=== PATIENT | male | born 1955 | race Caucasian/White ===

== ENCOUNTER → 2017-07-08 | Outpatient (CLI) | payer BC | LOC: FIMAGING 14:10 | PROVIDERS: ATTEND Orthopaedic Surgery | DX: Z01.818 Encounter for other preprocedural examination (principal); M17.11 Unilateral primary osteoarthritis, right knee ==

== ENCOUNTER 2017-07-23 05:56 | Observation (INO) | payer BC ==
[2017-07-23] MEDS ORDERED: ROPIVACAINE 0.2% 80 MG, EPINEPHrine 0.2 MG, KETOROLAC TROMETHAMINE 30 MG in BAG 0 ML IU ONE (06:00)
[2017-07-23] MEDS ORDERED: TRANEXAMIC ACID 3,000 MG in NS 50 ML IRR ONE (06:00)
[2017-07-23] MEDS ORDERED: ceFAZolin 2 GM/DEXTROSE 100 ML IV ONE (06:05)
[2017-07-23] MEDS ORDERED: DEXAMETHASONE 4 MG/ML VIAL IVP ONE (06:05)
[2017-07-23] MEDS ORDERED: FAMOTIDINE 20 MG TAB PO ONE (06:05)
[2017-07-23] MEDS ORDERED: ACETAMINOPHEN 325 MG TAB PO ONE (06:05)
[2017-07-23] MEDS ORDERED: LR 1,000 ML IV ONE (06:07)
[2017-07-23] MEDS ORDERED: LIDOCAINE 1% 2 ML INJ ID PRN (06:07)
[2017-07-23] MEDS ORDERED: MIDAZOLAM 2 MG/2 ML VIAL IVP ONE (07:15)
--- NOTE | 2017-07-23 07:16 | PDANEPAE ---
ANE History of Present Illness right knee osteoarthritis ANE Past Medical History - Cardiovascular History Hx Hypertension: No Hx Arrhythmias: No Hx Chest Pain: No Hx Coronary Artery / Peripheral Vascular Disease: No Hx CHF / Valvular Disease: No Hx Palpitations: No - Pulmonary History Hx COPD: No Hx Asthma/Reactive Airway Disease: No Hx Recent Upper Respiratory Infection: No Hx Oxygen in Use at Home: No Hx Sleep Apnea: No Sleep Apnea Screening Result - Last Documented: Negative - Neurologic History Hx Cerebrovascular Accident: No Hx Seizures: No Hx Dementia: No - Endocrine History Hx Diabetes: No - Renal History Hx Renal Disorders: No - Liver History Hx Hepatic Disorders: No - Neurological & Psychiatric Hx Hx Neurological and Psychiatric Disorders: No - Cancer History Hx Cancer: No Cancer History Comment: PRE-CANCEROUS CELLS REMOVED FROM NOSE A COUPLE YEARS AGO - Congenital Disorder History Hx Congenital Disorders: No - GI History Hx Gastrointestinal Disorders: No - Other Health History Other Health History: NONE - Chronic Pain History Chronic Pain: Yes (RIGHT KNEE) - Surgical History Prior Surgeries: LOWER BACK SURGERIES X4. KNEE SURGERIES X3. VASECTOMY. LASIK. WISDOM TEETH ANE Review of Systems Review of Systems: - Exercise capacity METS (RN): 4 METS ANE Patient History - Allergies Allergies/Adverse Reactions: No Known Allergies Allergy (Verified 06/25/17 10:49) - Home Medications Home Medications: Aspirin [Aspirin 81mg (*)] 81 mg PO DAILY 06/18/17 [Last Taken 07/14/17] Atorvastatin Calcium [Lipitor 10 mg (*)] 10 mg PO DAILY 06/18/17 [Last Taken 01/03 08:00] Cyanocobalamin [Vitamin B12 (*)] 1,000 mcg PO DAILY 06/18/17 [Last Taken ] Glucosamine Sulfate [Glucosamine Sulfate 500 MG (*)] 1,500 mg PO DAILY 06/18/17 [Last Taken 07/14/17] Multivitamins [Multivitamin (*)] 1 each PO DAILY 06/18/17 [Last Taken 07/14/17] - NPO status NPO Since - Liquids (Date): 07/22/17 NPO Since - Liquids (Time): 21:45 NPO Since - Solids (Date): 07/22/17 NPO Since - Solids (Time): 20:00 - Smoking Hx Smoking Status: Former smoker - Family Anes Hx Family Hx Anesthesia Complications: NONE ANE Labs/Vital Signs - Vital Signs Blood Pressure: 116/73 Heart Rate: 52 Respiratory Rate: 16 O2 Sat (%): 94 Height: 182.88 cm Weight: 79.379 kg ANE Physical Exam - Airway Neck exam: FROM Mallampati Score: Class 1 Mouth exam: normal dental/mouth exam - Pulmonary Pulmonary: no respiratory distress - Cardiovascular Cardiovascular: regular rate and rhythym - ASA Status ASA Status: II ANE Anesthesia Plan Anesthesia Plan: MAC, spinal Regional Anesthesia: adductor canal FNB
[2017-07-23] MEDS ORDERED: PROPOFOL/EMULSION 500 MG/50 ML BOTTLE IV ONE (07:18)
[2017-07-23] MEDS ORDERED: fentaNYL 100 MCG/2 ML INJ ONE (07:18)
[2017-07-23] MEDS ORDERED: VANCOMYCIN 1 GM VIAL ONE (07:19)
[2017-07-23] MEDS ORDERED: TRANEXAMIC ACID 3,000 MG/50 ML BAG IRR ONE (07:20)
--- NOTE | 2017-07-23 07:20 | PDHPUP ---
History & Physical Update H&P update statement: This history and physical update is based on an assessment of the patient which was completed after admission or registration (within 24 hours), but prior to the surgery/procedure. H&P update: H&P reviewed & patient examined, no change in patient's condition since H&P completed
[2017-07-23] MEDS ORDERED: oxyCODONE IR 5 MG TAB PO PRN (07:44)
[2017-07-23] MEDS ORDERED: ONDANSETRON DISINTEGRATING 4 MG TAB PO PRN (07:44)
[2017-07-23] MEDS ORDERED: METOCLOPRAMIDE 10 MG/2 ML VIAL IVP PRN (07:44)
[2017-07-23] MEDS ORDERED: PROMETHAZINE HCL 25 MG/ML INJ IVP PRN ×2 (07:44→08:07)
[2017-07-23] MEDS ORDERED: PROMETHAZINE HCL 25 MG SUPPR PR PRN (07:44)
[2017-07-23] MEDS ORDERED: POLYETHYLENE GLYCOL 3350 17 GM PKT PO PRN (07:44)
[2017-07-23] MEDS ORDERED: CYCLOBENZAPRINE 10 MG TAB PO PRN (07:44)
[2017-07-23] MEDS ORDERED: LACTULOSE 20 GM/30 ML UDCUP PO PRN (07:44)
[2017-07-23] MEDS ORDERED: MAGNESIUM HYDROXIDE 30 ML UDCUP PO PRN (07:44)
[2017-07-23] MEDS ORDERED: DIPHENOXYLATE/ATROPINE LOMOTIL 1 TAB PO PRN (07:44)
[2017-07-23] MEDS ORDERED: BISACODYL 10 MG SUPP PR PRN (07:44)
[2017-07-23] MEDS ORDERED: TEMAZEPAM 15 MG CAP PO PRN (07:44)
[2017-07-23] MEDS ORDERED: diphenhydrAMINE 25 MG CAP PO PRN (07:44)
[2017-07-23] MEDS ORDERED: ONDANSETRON 4 MG/2 ML VIAL IVP PRN ×2 (07:44→08:07)
[2017-07-23] MEDS ORDERED: ONDANSETRON 4 MG/2 ML VIAL ONE (07:58)
[2017-07-23] MEDS ORDERED: DEXAMETHASONE 4 MG/ML VIAL ONE (07:58)
[2017-07-23] MEDS ORDERED: ROPIVACAINE HCL 150 MG/30 ML INJ ONE (07:59)
[2017-07-23] MEDS ORDERED: NALOXONE HCL 0.4 MG/ML INJ IVP PRN (08:07)
[2017-07-23] MEDS ORDERED: fentaNYL 100 MCG/2 ML INJ IVP PRN (08:07)
[2017-07-23] MEDS ORDERED: HYDROmorphONE/DILAUDID 1 MG/ML INJ IVP PRN (08:07)
[2017-07-23] MEDS ORDERED: OXYCODONE/APAP 5/325 TAB PO PRN (08:07)
--- NOTE | 2017-07-23 08:48 | POSTOPPROG ---
Post Op Note Date of Operation: 07/23/17 Surgeon: Brown You Broadcast Transmitter Operator: barbara you Anesthesiologist: dr. ortez Anesthesia: Spinal, Other (Specify) (adductor canal block) Pre-op Diagnosis: right medial kene OA Post-op Diagnosis: same Indication: right knee pain due to OA that failed conservative measures Procedure: R med partial knee arthroplasty robot assisted Findings: severe medial knee OA Inf/Abcess present in the surg proc area at time of surgery?: No EBL: [id number]
[2017-07-23] MEDS ORDERED: SENNOSIDES/DOCUSATE SODIUM TAB PO SCH (09:00)
--- NOTE | 2017-07-23 09:01 | POSTANESTH ---
Post Anesthetic Evaluation Cardiovascular Status: Normal, Stable Respiratory Status: Normal, Stable Level of Consciousness/Mental Status: Can Participate in Eval Pain Control: Adequate, Prn Tx Ordered Nausea/Vomiting Control: Adequate, Prn Tx Ordered Complications Possibly Related to Anesthesia: None Noted
[2017-07-23] MEDS: LR 1,000 ML IV SCH ×3 (10:00→11:51)
[2017-07-23 11:38] VITALS: RESP 16
[2017-07-23] MEDS: ACETAMINOPHEN 325 MG TAB PO SCH ×2 (11:53→17:34)
[2017-07-23] MEDS ORDERED: ceFAZolin 2 GM/DEXTROSE 100 ML IV SCH (14:00)
[2017-07-23 15:25] VITALS: BP 107/64; PULSE 58; TEMP 97.9; O2SAT 96
[2017-07-23] MEDS ORDERED: FAMOTIDINE 20 MG TAB PO SCH (21:00)
[2017-07-23] MEDS ORDERED: ASPIRIN 325 MG TAB PO SCH (21:00)
[2017-07-24] MEDS ORDERED: ATORVASTATIN CALCIUM 10 MG TAB PO SCH (09:00)
--- NOTE | 2017-07-24 11:27 | ASDISCHSUM ---
Discharge Information Plan Status:Home with No Needs Medically Cleared to Leave: Discharge Date:07/23/2017 08:20 PM CM D/C Disposition: ADT D/C Disposition:Home, Routine, Self-Care Projected Discharge Date:07/23/2017 08:20 PM Transportation at D/C: Discharge Delay Reason: Follow-Up Date:07/23/2017 08:20 PM Discharge Slot: Final Diagnosis: Placement Information Patient Contact Information Contact Name:GORGE Relationship: Address: Work Phone: City: [facility] Phone: State/[place] Code: Email: Financial Information Financial Class:HMO and PPO Plans Primary Plan Desc:[employer]AN Primary Plan Number:[id number] Secondary Plan Desc: Secondary Plan Number: Assessment Information Intervention Information
--- NOTE | 2017-07-24 20:17 | GOP ---
[f rep st] OPERATIVE REPORT DATE OF OPERATION: 07/23/2017 SURGEON: Asif Nash MD SOFTWARE SECURITY ARCHITECT: Leah Nash PA-C. ANESTHESIA: Spinal. PREOPERATIVE DIAGNOSIS: Right knee osteoarthritis. POSTOPERATIVE DIAGNOSIS: Right knee osteoarthritis. PROCEDURE PERFORMED: Right medial compartment partial knee replacement with computer navigation and robotic assist. FINDINGS/PATHOLOGY: Severe medial compartment osteoarthritis. ESTIMATED BLOOD LOSS: 30 cc. INDICATIONS: This is a 62-year-old male with progressive pain of the right knee unresponsive to conservative care. Risks and benefits of surgical intervention were explained in detail. DESCRIPTION OF PROCEDURE: The patient was brought to the operating room and placed on the table in supine position. Spinal anesthesia was induced without difficulty. A pneumatic tourniquet was applied about the right proximal thigh and the leg was prepped and draped in sterile fashion. Attention was turned first to the distal aspect of the right femur. At 3 cm proximal to the lateral rise of the femur, 2 percutaneous half pins were placed for fixation of the femoral array. In a similar fashion, 2 pins were placed anterolateral on the tibia for fixation of the tibial array. External land marking and registration of the hip center were performed without difficulty. After exsanguination by elevation, the tourniquet was inflated to 250 mmHg. Incision was made from the tibial tuberosity to the superior pole of the patella. Dissection was carried out through the subcutaneous tissue to the deep fascia using Bovie electrocautery for hemostasis. Medial parapatellar arthrotomy was carried out to the superior pole of the patella. The medial collateral ligament was elevated and the infrapatellar fat pad was resected. Internal femoral and tibial registrations were carried out without difficulty and the femoral and tibial checkpoints were placed and verified for accuracy. Attention was turned to the femur. The foot print for the size 6 femoral component was cut with the 6 mm bur using the [employer] robotic system and verified for accuracy against the CT based plan. The hole was cut for the femoral post. In a similar fashion, the 6 mm bur was used to cut the foot print for the size 5 tibial component using the DAVID system and verified for accuracy against the CT based plan. Attention was turned to the posterior aspect of the knee and remnants of the medial meniscus were excised. The posterior capsule was injected with ropivacaine, epinephrine and Toradol. Trial reduction was carried out and there was excellent range of motion, alignment and stability using the size 6 femoral component and the size 5 tibial component, 5 x 9 mm polyethylene. All trials were then removed. The joint was thoroughly irrigated and carefully dried. One package of cement and 1 gram of vancomycin were mixed in the vacuum mixer and placed on the fixation surfaces of all components. The components were implanted and all excess cement was thoroughly removed. Implant placement was verified against the CT view plan and found to be excellent. The tourniquet was deflated and all bleeders were coagulated. The wound was thoroughly irrigated and closed using interrupted sutures of 2-0 Vicryl for the joint capsule. The subcu was closed with 3-0 Vicryl and the skin with 4-0 Monocryl. Dermabond and Steri-Strips were applied, followed by a compressive dressing. The patient was then moved from the operating room to the recovery room in good condition, having tolerated the procedure well. CASE CLASSIFICATION: Clean. /[id number]/MODL [id number]
== END 2017-07-23 20:20 | disposition home or self-care (01) ==
LOC: INTOOBSV 05:56 → F3N 05:56
PROVIDERS: ADMIT Orthopaedic Surgery; ATTEND Orthopaedic Surgery
PROC: 8E0YXBZ Computer Assisted Procedure of Lower Extremity (ICD-10-PCS; principal; 2017-07-23 13:15)
PROC: 0SRC0JZ Replacement of Right Knee Joint with Synthetic Substitute, Open Approach (ICD-10-PCS; principal; 2017-07-23 13:15)
DX: M17.11 Unilateral primary osteoarthritis, right knee (principal); M25.561 Pain in right knee
CPT/HCPCS: 20985; 27446; 73560; 97110; 97161; 97165; G0378; C1713; J0171; J0690; J1100; J1885; J2250; J2405; J2704; J2795; J3010; J3370